=== PATIENT | male | born 1990 | race American Indian/Alaskan Native ===

== ENCOUNTER 2017-04-20 20:10 | Emergency (ER) | payer OTHER ==
[~2017-04-20] VITALS: Ht 182.9 cm; Wt 81.7 kg
== END 2017-04-20 23:36 | disposition home or self-care (01) ==
LOC: ED 20:10
PROC: 0HQGXZZ Repair Left Hand Skin, External Approach (ICD-10-PCS; principal; 2017-04-20)
DX: S61.211A Laceration without foreign body of left index finger without damage to nail, initial encounter (principal); F17.200 Nicotine dependence, unspecified, uncomplicated; Z91.030 Bee allergy status; Z91.038 Other insect allergy status; W45.8XXA Other foreign body or object entering through skin, initial encounter; Y92.69 Other specified industrial and construction area as the place of occurrence of the external cause; Y99.0 Civilian activity done for income or pay
CPT/HCPCS: 12002; 99282

== ENCOUNTER 2017-06-30 14:10 | Observation (INO) | payer OTHER ==
[~2017-06-30] VITALS: Ht 182.9 cm; Wt 81.7 kg
--- NOTE | 2017-06-30 19:43 | NUR ---
06/30/171942 CHELSEA,SAMUEL Padilla 1932: O2 DECREASED TO 8 L/MIN VIA MASK. 1937: DR. CHEN AT BEDSIDE TALKING WITH PATIENT. 1939: O2 MASK REMOVED PER PATIENT REQUEST. PATIENT NOW ON ROOM AIR. 1941: PATIENT C/O PAIN 10/04. REQUESTS SOMETHING FOR PAIN. MEDICATED FOR PAIN WITH IV FENTANYL.
--- NOTE | 2017-06-30 20:10 | NUR ---
PATIENT ARRIVED FROM SURGERY. HE IS SLIGHTLY DROWSEY BUT ANSWERS APPROPRIATELY. REPORTS PAIN 4/10. NO NAUSEA. IS REQUESTING FOOD. REPORT RECEIVED FROM ACOUSTICS TEACHER.
--- NOTE | 2017-06-30 20:33 | NUR ---
BROUGHT SNACKS FOR PTS AND CHILD. BEDSIDE TABLE AND CALL LIGHT IN REACH.
--- NOTE | 2017-06-30 21:00 | NUR ---
PATIENT ASSESSMENT COMPLETED. HE IS AAOX4. PAIN CONTROLLED AT 4/10. NO NAUSEA. WAS ABLE TO EAT A SANDWICH AND SNACK. NO NAUSEA. UP TO VOID, BUT UNABLE TO AT THIS TIME. IV FLUIDS INFUSING AT 125ML/HR. ABD IS MILDLY DISTENDED AND TENDER, BOWEL SOUNDS ACTIVE. LAP SITES HAVE NO DRAINAGE. PATIENT IS WANTING TO GO HOME TONIGHT. DISCUSSED DISCHANGE CRITERIA WITH HIM AND PAIN MANAGEMENT. HE VERBILIZED UNDERSTANDING. WILL DISCUSS WITH .
--- NOTE | 2017-06-30 21:41 | NUR ---
IV ABX AND SCHEDULED MEDS GIVEN PER ORDER. PATIENT REPORTS SLIGHT INCREASE IN PAIN WITH MOVEMENT UP TO THE BATHROOM. PRN PERC PROVIDED. STILL NO NAUSEA. SPOKE WITH AND SHE AGREED HE COULD GO HOME TONIGHT. STATED SHE WOULD BE ON THE FLOOR SHORTLY.
--- NOTE | 2017-06-30 22:45 | NUR ---
PATIENT READY FOR DC. EDUCATION PROVIDED BOTH VERBAL AND WRITTEN. ALL QUESTIONS ANSWERED. PATIENT VERBILIZED UNDERSTANDING. PATIENT ABLE TO GET DRESSED INDEPENDENTLY AND IS WAITING ON HIS RIDE HOME. ASSISTANT WOMEN'S TENNIS COACH JUNE REMOVED IV SITE. PATIENT WAS ABLE TO VOID AT THIS TIME.
--- NOTE | 2017-06-30 23:42 | NUR ---
VITALS DONE AND CHARTED. REMOVED PT'S IV PER REQUEST OF HIS RN YU.
== END 2017-06-30 23:35 | disposition home or self-care (01) ==
LOC: ED 14:10 → DS 17:35 → DSVR 17:35 → MS 17:43 → DS 23:35 → MS 23:35
PROVIDERS: ADMIT Surgery
PROC: 0DTJ4ZZ Resection of Appendix, Percutaneous Endoscopic Approach (ICD-10-PCS; principal; 2017-06-30 17:50)
DX: K35.3 Acute appendicitis with localized peritonitis (principal); K38.1 Appendicular concretions; F15.11 Other stimulant abuse, in remission
CPT/HCPCS: 00840; 36415; 74177; 80053; 81001; 83690; 85025; 96374; 96375; 99285; J0330; J0690; J0696; J1100; J1170; J1644; J1885; J2250; J2405; J2704; J2710; J2765; J3010; J7030; Q9967

== ENCOUNTER 2017-09-26 16:53 | Emergency (ER) | payer OTHER ==
[~2017-09-26] VITALS: Ht 182.9 cm; Wt 81.7 kg
[2017-09-26] MEDS ORDERED: CYCLOBENZAPRINE10 MG PO (18:13)
[2017-09-26] MEDS ORDERED: PERCOCET 5-3251 EACH PO (18:13)
== END 2017-09-26 18:55 | disposition home or self-care (01) ==
LOC: ED 16:53
DX: S39.012A Strain of muscle, fascia and tendon of lower back, initial encounter (principal); Z91.030 Bee allergy status; Z91.038 Other insect allergy status; W18.2XXA Fall in (into) shower or empty bathtub, initial encounter
CPT/HCPCS: 72100; 96372; 99283; J1885

== ENCOUNTER 2020-08-10 16:14 | Emergency (ER) | payer OTHER ==
[~2020-08-10] VITALS: Ht 182.9 cm; Wt 83.9 kg
[~2020-08-10 16:14] MED LIST: CYCLOBENZAPRINE10 MG PO; PERCOCET 5-3251 EACH PO
== END 2020-08-10 18:02 | disposition home or self-care (01) ==
LOC: ED 16:14
DX: S93.402A Sprain of unspecified ligament of left ankle, initial encounter (principal); W01.10XA Fall on same level from slipping, tripping and stumbling with subsequent striking against unspecified object, initial encounter; Z91.030 Bee allergy status
CPT/HCPCS: 73590; 73610; 73630; 99283-25